=== PATIENT | male | born 1990 | race Two or more races ===

== ENCOUNTER 2024-08-02 10:44 | Emergency (ER) | payer MEDICAID, OTHER ==
[~2024-08-02] VITALS: Ht 175.3 cm; Wt 86.4 kg
[2024-08-02 11:37] LABS: Hematocrit 46.8 % (41.0-53.0); Hemoglobin 16.3 g/dL (13.5-17.5); Mean Corpuscular Hemoglobin 30.8 pg (28.0-32.0); Mean Corpuscular Hgb Conc. 34.7 g/dL (32.0-36.0); Mean Corpuscular Volume 88.6 fL (80.0-100.0); Platelet Count (auto) 225 10^3/uL (140-450); Red Blood Cells 5.28 10^6/uL (4.5-5.90); Red Cell Distribution Width 13.4 % (11.8-14.3); White Blood Cell 12.1 10^3/uL (4.4-10.8)
[2024-08-02 11:42] LABS: Chloride 99 mmol/L (98-107); Potassium 3.5 mmol/L (3.5-5.1); Sodium 135 mmol/L (136-145)
[2024-08-02 11:43] LABS: Anion Gap 10 (5-15); Calcium 9.8 mg/dL (8.7-10.4); Carbon Dioxide 26 mmol/L (20-31)
[2024-08-02 11:48] LABS: BUN/Creatinine Ratio 5.2 (10.0-20.0); Basophils % (manual) 0 (0.0-2.0); Blast Cells 0; Blood Urea Nitrogen 6 mg/dL (9-23); Eosinophils % (manual) 0 (0-7); Glucose 131 mg/dL (74-106); Metamyelocytes % 0; Myelocytes % 0; Promyelocytes % 0; Reactive Lymphocytes 0
[2024-08-02 12:49] LABS: Band Neutrophils % (manual) 21; Lymphocytes % (manual) 11 (10.0-50.0); Monocytes % (manual) 6 (0-12); Platelet Estimate Adequate
[2024-08-02 15:22] VITALS: BP 122/54; PULSE 86; RESP 17; TEMP 98.4; O2SAT 98
[2024-08-02 15:43] LABS: Urine Bacteria None Seen /hpf (None Seen)
[2024-08-02 16:10] LABS: Urine Blood TRACE /uL (Negative); Urine Clarity Turbid (Clear); Urine Color Dark-Yellow (Yellow); Urine Mucus FEW (None Seen); Urine Protein, UAD 2+ (Negative); Urine Specific Gravity 1.033 (1.001-1.035); Urine Urobilinogen 8 mg/dL (Negative); Urine WBC 3 /hpf (0 - 3)
[2024-08-02] MEDS ORDERED: ACETAMINOPHEN 500 MG TAB PO PRN (21:15)
[2024-08-02 21:39] LABS: Bilirubin, Total 1.5 mg/dL (0.2-1.0)
== END 2024-08-03 00:35 | disposition left against medical advice (07) ==
LOC: ER 10:44
DX: K52.9 Noninfective gastroenteritis and colitis, unspecified (principal); Z79.899 Other long term (current) drug therapy
CPT/HCPCS: 36415; 80048; 81001; 82247; 82306; 82607; 83735; 84075; 84443; 84450; 84460; 85007; 85027